=== PATIENT | female | born 1985 | race Hispanic/Latino ===

== ENCOUNTER 2024-08-15 00:49 | Emergency (ER) | payer OTHER, SELFPAY ==
[2024-08-15] MEDS ORDERED: Naproxen 500 MG TAB ONE (01:30)
[2024-08-15] MEDS ORDERED: Bacitracin 1 PK ONE (01:51)
== END 2024-08-15 02:07 | disposition home or self-care (01) ==
LOC: NAV ERS 00:49
DX: S80.11XA Contusion of right lower leg, initial encounter (principal); F17.290 Nicotine dependence, other tobacco product, uncomplicated; F90.9 Attention-deficit hyperactivity disorder, unspecified type; V29.99XA Rider (driver) (passenger) of other motorcycle injured in unspecified traffic accident, initial encounter; Y93.89 Activity, other specified; Z48.02 Encounter for removal of sutures; Z79.899 Other long term (current) drug therapy
CPT/HCPCS: 99283